=== PATIENT | female | born 1960 | race Native Hawaiian/Other Pacific Islander ===

== ENCOUNTER → 2016-04-11 03:59 | Outpatient (CLI) | payer OTHER | END | disposition home or self-care (01) | LOC: AMB 03:59 | DX: R40.20 Unspecified coma (principal) | CPT/HCPCS: A0425; A0427 ==

== ENCOUNTER 2016-04-11 04:12 | Emergency (ER) | payer OTHER ==
[~2016-04-11] VITALS: Ht 167.6 cm; Wt 79.8 kg
[2016-04-11 04:15] VITALS: BP 140/94; TEMP 98.2
[2016-04-11 04:40] LABS: PLATELET COUNT 260 K/uL (152-353)
[2016-04-11 04:50] LABS: POTASSIUM 3.3 mmol/L (3.6-5.2); SODIUM 140 mmol/L (136-145)
== END 2016-04-11 05:20 | disposition left against medical advice (07) ==
LOC: ED 04:12
PROC: 0HQFXZZ Repair Right Hand Skin, External Approach (ICD-10-PCS; principal; 2016-04-11)
DX: F19.19 Other psychoactive substance abuse with unspecified psychoactive substance-induced disorder (principal); S61.212A Laceration without foreign body of right middle finger without damage to nail, initial encounter; X58.XXXA Exposure to other specified factors, initial encounter; Y92.89 Other specified places as the place of occurrence of the external cause
CPT/HCPCS: 36415; 36600; 80053; 82805; 85027; 96374; 99291; J7040

== ENCOUNTER 2016-06-02 18:41 | Emergency (ER) | payer OTHER ==
[~2016-06-02] VITALS: Ht 170.2 cm; Wt 78.0 kg
[2016-06-02 20:07] VITALS: BP 108/78; TEMP 97.9
== END 2016-06-02 20:42 | disposition left against medical advice (07) ==
LOC: ED 18:41
DX: M54.89 Other dorsalgia (principal)
CPT/HCPCS: 99281

== ENCOUNTER 2016-07-30 19:03 | Outpatient (CLI) | payer OTHER | END 2016-07-30 19:40 | disposition short-term general hospital (02) | LOC: AMB 19:03 | DX: S80.02XA Contusion of left knee, initial encounter (principal); V49.9XXA Car occupant (driver) (passenger) injured in unspecified traffic accident, initial encounter; Y93.89 Activity, other specified; Y92.89 Other specified places as the place of occurrence of the external cause; Y99.8 Other external cause status | CPT/HCPCS: A0425; A0427 ==